=== PATIENT | female | born 1970 | race Caucasian/White ===

== ENCOUNTER → 2016-06-05 | Outpatient (CLI) | payer OTHER ==
[~2016-06-05] MED LIST: /METH500TA PO; AMIT25TA PO; ANEX75TA PO; BACL10TA2 PO; CLAR10CA3 PO; COMBAER6 INH; DICL50TA2 PO; EXCETAB80 PO; FLEX10TA2 PO; IBUP80TA PO; LIDO1OIN2 TOP; NORCOBULK PO; PERC10TA17 PO; TIZA4TAB3 PO; VOLT1GEL2 TD; ZANA2CAP PO
--- NOTE | 2016-06-15 01:49 | ECWPNPC ---
PATIENT NAME: URIEL HARTMAN : 1970 GENDER: FEMALE VISIT DATE: 06/05/2016 DISCHARGE DATE: 06/05/16 1337 VISIT LOCKED DATE TIME: PHYSICIAN: AKOSUA SEPULVEDA RESOURCE: AKOSUA SEPULVEDA REASON FOR APPOINTMENT 1. WC, NECK HISTORY OF PRESENT ILLNESS HISTORY OF PRESENT ILLNESS: PAIN THE PATIENT DESCRIBES THE PAIN... FALL RISK SCREENING: SCREENING :NO FALLS IN THE PAST YEAR TODAY'S VISIT: NOTES: WC FOLLOW UP FOR NECK/ RIGHT SHOULDER PAIN. RATES PAIN TODAY 6-7/10. IS CURRENTLY HAVING PAIN RADIATING INTO RIGHT ARM FROM BASE OF NECK. FEELS A SENSATION OF TEARING OVER THE RIGHT DELTOID. HAS CONTINUED TO WORK BUT DOES NOTE PAIN INCREASING AT END OF WORK DAY. . CURRENT MEDICATIONS TAKING COMBIVENT 120-20 MCG/ACT AEROSOL 2 PUFFS INHALATION FOUR TIMES A DAY TAKING IBUPROFEN 800 MG TABLET 1 TABLET ORALLY TID PRN TAKING METHOCARBAMOL 500 MG TABLET 1/2 -1 TAB ORALLY 1/2 TABLET IN MORNING AND MIDDAY, 1 TABLET AT BEDTIME TAKING AMITRIPTYLINE HCL 25 MG TABLET 1 TABLET AT BEDTIME ORALLY ONCE A DAY TAKING PERCOCET 7.5-325 MG TABLET 1 TABLET NEEDED ORALLY EVERY 8-12 PRN PAIN MDD2 NOT-TAKING WELLBUTRIN TABLET 1 TABLET ORALLY DAILY NEECDED NOT-TAKING VOLTAREN 1 % GEL 1 APPLICATION EXTERNALLY EVERY 6 HOURS NEEDED NOT-TAKING LIDOCAINE 5 % OINTMENT 1 APPLICATION TO AFFECTED AREA NEEDED EXTERNALLY THREE TIMES A DAY NOT-TAKING TIZANIDINE HCL 2 MG TABLET 1 TABLET NEEDED ORALLY EVERY 8 HRS MEDICATION LIST REVIEWED AND RECONCILED WITH THE PATIENT ALLERGIES AMPICILLIN: HIVES: ALLERGY NITROFURANTOIN: DYSPNEA: ALLERGY PENICILLIN (FOR ALLERGIES USE ONLY): HIVES: ALLERGY REVIEW OF SYSTEMS CONSTITUTIONAL: ANY CHANGE IN YOUR MEDICAL CONDITION? NO . CHILLS NO . FEVER NO . INFECTION: DO YOU HAVE NEW INFECTIONS? NO . DO YOU HAVE HISTORY OF MRSA? NO . MUSCULOSKELETAL: ANY NEW PATTERNS OF PAIN OR NUMBNESS? MORE ACHINESS GOING DOWN INTO RIGHT ELBOW FROM NECK AND SHOULDER . GASTROENTEROLOGY: ANY NEW CHANGE IN BOWEL CONTROL? NO . GENITOURINARY: ANY NEW CHANGE IN BLADDER CONTROL? NO . IS THERE A CHANCE YOU COULD BE ? NO . HEMATOLOGY/LYMPH: DO YOU TAKE ANY BLOOD THINNERS? (FOR EXAMPLE- COUMADIN, PLAVIX, AGGRENOX, PLATEL, PRADAXA, OR XARELTO) NO . WHEN WAS YOUR LAST DOSE? DATE: TIME: . NEUROLOGY: HAVE YOU FALLEN IN THE PAST 6 MONTHS? NO . ANY NEW EXTREMITY NUMBNESS OR WEAKNESS? NUMBNESS AND TINGLING IN 4TH AND 5TH FINGERS BOTH HANDS WHEN LAYING DOWN OR WITH USE OF RIGHT HAND . CARDIOLOGY: DO YOU HAVE A PACEMAKER OR DEFIBRILLATOR? NO . RESPIRATORY: HAVE YOU BEEN SICK IN THE PAST WEEK? NO . FEVER NO . FLU LIKE SYMPTOMS? NO . COUGH NO . INTEGUMENTARY: DO YOU HAVE ANY RASHES OR OPEN SORES? NO . ALLERGIC/IMMUNO: ARE YOU ALLERGIC TO SHELLFISH OR IV DYE? NO . ANY NEW ALLERGIES? NO . PSYCHIATRIC: DO YOU HAVE THOUGHTS OF HURTING YOURSELF OR SOMEONE ELSE? NO . ARE YOU ABUSED, NEGLECTED, OR IN AN UNSAFE ENVIRONMENT? NO . ENDOCRINOLOGY: ARE YOU DIABETIC? NO . OTHER: DO YOU NEED ANY PRESCRIPTIONS? YES . IF YES, PLEASE LIST: PERCOCET____ . ANY NEW PROBLEMS WITH YOUR MEDICATIONS? NO . WHEN DID YOU LAST EAT? ____ . WHEN DID YOU LAST DRINK? ____ . WHAT DID YOU LAST DRINK? ____ . NAME OF PERSON DRIVING YOU HOME? ____ . DO YOU HAVE ANY OTHER QUESTIONS OR CONCERNS NO . REVIEWED BY: PROVIDER: AKOSUA KING . VITAL SIGNS WT 147 LBS, HT 62 IN, BMI 26.88 INDEX, BP 127/70 MM HG, HR 75 /MIN, RR 17 /MIN, TEMP 97.5 F, OXYGEN SAT % 97, REVIEWED BY: AM. EXAMINATION GENERAL EXAMINATION: PSYCHALERT , ORIENTED X 3 , APPROPRIATE MOOD AND AFFECT . LUNGS:CLEAR TO AUSCULTATION BILATERALLY. NO COUGH WITH DEEP BREATH. MUSCULOSKELETAL:POINT TENDERNESS OVER CERVICAL SPINOUS PROCESSES AND TRAPEZIUS MUSCLES., TRIGGER POINTS:, ELICITED WITH PALPATION OVER CERVICAL SPINOUS PROCESSES AND ACROSS THE TRAPEZIUS MUSCLES BILATERALLY. RESTRICTION OF ROM IS NOTED. TENDER OVER RIGHT ACROMIALCLAVICULAR JOINT. STERNMAN STRENTGTH EQUAL AND STRONG.. JOINTS:TENDER TO PALPATION OVER RIGHT ACROMIALCLAVICULAR JOINT. CAN ABDUCT RIGHT ARM TO APPROX 60 DEGREES TODAY. . ASSESSMENTS CERVICAL POST-LAMINECTOMY SYNDROME - M96.1 (PRIMARY) RIGHT ANTERIOR SHOULDER PAIN - M25.511 MYALGIA - M79.1 CHRONICALLY ON OPIATE THERAPY - Z79.899 TREATMENT CERVICAL POST-LAMINECTOMY SYNDROME REFILL PERCOCET TABLET, 7.5-325 MG, 1 TABLET NEEDED, ORALLY, EVERY 8-12 PRN PAIN MDD2, 30 DAY(S), 50, REFILLS 0 [facility] MRI SHOULDER W/O [id number] M 06/05/2016 1:27:29 PM > RIGHT NOTES: PHYSICAL THERAPY - CHECK AUTH. PROCEDURES PN WORKMANS' COMP OPINION IN YOUR OPINION, WAS THE INCIDENT THAT THE PATIENT DESCRIBED THE COMPETENT MEDICAL CAUSE OF THIS INJURY/ILLNESS? YES ARE THE PATIENT'S COMPLAINTS CONSISTENT WITH HIS/HER HISTORY OF THE INJURY/ILLNESS? YES IS THE PATIENT'S HISTORY OF THE INJURY/ILLNESS CONSISTENT WITH YOUR OBJECTIVE FINDING? YES WHAT IS THE PERCENTAGE OF TEMPORARY IMPAIRMENT? MODERATE TO MARKED = 66.7% IS THE PATIENT WORKING? YES DOCTOR ON SITE: JUDY DE LA PAZ MD FOLLOW UP 4-6 WEEKS WC (REASON: NEED WC AUTH FOR RIGHT SHOULDER MRI) ELECTRONICALLY SIGNED BY LISSETT MANZANARES ON 06/14/2016 AT 01:28 PM EST DISCLAIMER : THIS IS A VISIT SUMMARY EXTRACTED FROM THE [employer] CHART. IT IS NOT A COPY OF THE [email or web address] PROGRESS NOTE. CALIXTO
== END ==
LOC: M PAIN 09:20
PROVIDERS: ATTEND Nurse Practitioner Family
DX: Z09 Encounter for follow-up examination after completed treatment for conditions other than malignant neoplasm (principal); M96.1 Postlaminectomy syndrome, not elsewhere classified; M25.511 Pain in right shoulder; M79.1 Myalgia; Z88.0 Allergy status to penicillin; Z88.8 Allergy status to other drugs, medicaments and biological substances; Z79.1 Long term (current) use of non-steroidal anti-inflammatories (NSAID); Z79.891 Long term (current) use of opiate analgesic; Z79.899 Other long term (current) drug therapy

== ENCOUNTER → 2016-08-02 | Outpatient (CLI) | payer OTHER ==
--- NOTE | 2016-08-03 00:14 | ECWPNPC ---
PATIENT NAME: URIEL HARTMAN : 1970 GENDER: FEMALE VISIT DATE: 08/02/2016 DISCHARGE DATE: 08/02/16 1232 VISIT LOCKED DATE TIME: PHYSICIAN: AKOSUA SEPULVEDA RESOURCE: AKOSUA SEPULVEDA REASON FOR APPOINTMENT 1. WC, NECK HISTORY OF PRESENT ILLNESS HISTORY OF PRESENT ILLNESS: PAIN THE PATIENT DESCRIBES THE PAIN... FALL RISK SCREENING: SCREENING :NO FALLS IN THE PAST YEAR TODAY'S VISIT: NOTES: INCREASED PAIN AND TIGHTNESS FROM BASE OF HEAD ACROSS TO RIGHT SHOULDER. HAS NOT HEARD ON AUTH FOR PT.REPORTS PAIN MEDS WORK FAIRLY WELL. DENIES ANY ADVERSE EFFECTS. WAS ABLE TO COMPLETE SHOULDER MRI BUT NO REPORT HAS COME YET TO OUR OFFICE.. CURRENT MEDICATIONS TAKING COMBIVENT 120-20 MCG/ACT AEROSOL 2 PUFFS INHALATION FOUR TIMES A DAY TAKING IBUPROFEN 800 MG TABLET 1 TABLET ORALLY TID PRN TAKING PERCOCET 7.5-325 MG TABLET 1 TABLET NEEDED ORALLY EVERY 8-12 PRN PAIN MDD2 TAKING METHOCARBAMOL 500 MG TABLET 1/2 -1 TAB ORALLY 1/2 TABLET IN MORNING AND MIDDAY, 1 TABLET AT BEDTIME TAKING AMITRIPTYLINE HCL 25 MG TABLET 1 TABLET AT BEDTIME ORALLY ONCE A DAY NOT-TAKING WELLBUTRIN TABLET 1 TABLET ORALLY DAILY NEECDED NOT-TAKING VOLTAREN 1 % GEL 1 APPLICATION EXTERNALLY EVERY 6 HOURS NEEDED NOT-TAKING LIDOCAINE 5 % OINTMENT 1 APPLICATION TO AFFECTED AREA NEEDED EXTERNALLY THREE TIMES A DAY NOT-TAKING TIZANIDINE HCL 2 MG TABLET 1 TABLET NEEDED ORALLY EVERY 8 HRS MEDICATION LIST REVIEWED AND RECONCILED WITH THE PATIENT ALLERGIES AMPICILLIN: HIVES: ALLERGY NITROFURANTOIN: DYSPNEA: ALLERGY PENICILLIN (FOR ALLERGIES USE ONLY): HIVES: ALLERGY SOCIAL HISTORY GENERAL: TOBACCO USE ARE YOU A:NONSMOKER LEARNING BARRIERS / SPECIAL NEEDS ORIENTED TO PLAN OF CARE: PATIENT, PAIN MANAGEMENT PATIENT, ORIENTED TO PLAN OF CARE: PATIENT, PAIN MANAGEMENT PATIENT. NEW PATIENT PAIN DIARY TODAY'S VISITNOTES FROM 0-10, WHAT LEVEL IS YOUR PAIN TODAY?0 PAIN CLINIC PFS, CLERGY, PUBLIC HEALTH REFERRALS PFS REFERRAL NEEDED?NO CLERGY REFERRAL NEEDED?NO PUBLIC HEALTH REFERRAL NEEDED?NO WAS THE PROVIDER NOTIFIED OF ANY PERTINENT INFO?NO PFS REFERRAL NEEDED?NO CLERGY REFERRAL NEEDED?NO PUBLIC HEALTH REFERRAL NEEDED?NO WAS THE PROVIDER NOTIFIED OF ANY PERTINENT INFO?NO REVIEW OF SYSTEMS CONSTITUTIONAL: ANY CHANGE IN YOUR MEDICAL CONDITION? NO . CHILLS NO . FEVER NO . INFECTION: DO YOU HAVE NEW INFECTIONS? NO . DO YOU HAVE HISTORY OF MRSA? NO . MUSCULOSKELETAL: ANY NEW PATTERNS OF PAIN OR NUMBNESS? NO . GASTROENTEROLOGY: ANY NEW CHANGE IN BOWEL CONTROL? NO . GENITOURINARY: ANY NEW CHANGE IN BLADDER CONTROL? NO . IS THERE A CHANCE YOU COULD BE ? NO . HEMATOLOGY/LYMPH: DO YOU TAKE ANY BLOOD THINNERS? (FOR EXAMPLE- COUMADIN, PLAVIX, AGGRENOX, PLATEL, PRADAXA, OR XARELTO) NO . WHEN WAS YOUR LAST DOSE? DATE: TIME: . NEUROLOGY: HAVE YOU FALLEN IN THE PAST 6 MONTHS? NO . ANY NEW EXTREMITY NUMBNESS OR WEAKNESS? NO . CARDIOLOGY: DO YOU HAVE A PACEMAKER OR DEFIBRILLATOR? NO . RESPIRATORY: HAVE YOU BEEN SICK IN THE PAST WEEK? NO . FEVER NO . FLU LIKE SYMPTOMS? NO . COUGH NO . INTEGUMENTARY: DO YOU HAVE ANY RASHES OR OPEN SORES? NO . ALLERGIC/IMMUNO: ARE YOU ALLERGIC TO SHELLFISH OR IV DYE? NO . ANY NEW ALLERGIES? NO . PSYCHIATRIC: DO YOU HAVE THOUGHTS OF HURTING YOURSELF OR SOMEONE ELSE? NO . ARE YOU ABUSED, NEGLECTED, OR IN AN UNSAFE ENVIRONMENT? NO . ENDOCRINOLOGY: ARE YOU DIABETIC? NO . OTHER: DO YOU NEED ANY PRESCRIPTIONS? YES . IF YES, PLEASE LIST: ____PERCOCET . ANY NEW PROBLEMS WITH YOUR MEDICATIONS? NO . WHEN DID YOU LAST EAT? ____ . WHEN DID YOU LAST DRINK? ____ . WHAT DID YOU LAST DRINK? ____ . NAME OF PERSON DRIVING YOU HOME? ____ . DO YOU HAVE ANY OTHER QUESTIONS OR CONCERNS NO . REVIEWED BY: PROVIDER: AKOSUA KING . VITAL SIGNS WT 155.2 LBS, HT 62 IN, BMI 28.38 INDEX, BP 113/65 MM HG, HR 64 /MIN, RR 16 /MIN, TEMP 97.2 F, OXYGEN SAT % 98%, NA INITIALS SC 11:44. EXAMINATION GENERAL EXAMINATION: PSYCHALERT , ORIENTED X 3 , APPROPRIATE MOOD AND AFFECT . LUNGS:CLEAR TO AUSCULTATION BILATERALLY. NO COUGH WITH DEEP BREATH. MUSCULOSKELETAL:POINT TENDERNESS OVER CERVICAL SPINOUS PROCESSES AND TRAPEZIUS MUSCLES., TRIGGER POINTS AND ROPY FIBROUS BANDS ARE ELICITED WITH PALPATION OVER CERVICAL SPINOUS PROCESSES AND ACROSS THE TRAPEZIUS MUSCLES BILATERALLY RIGHT > LEFT. RESTRICTION OF ROM IS NOTED. TENDER OVER RIGHT ACROMIALCLAVICULAR JOINT. GENERATING STATION MECHANIC STRENTGTH EQUAL AND STRONG.. JOINTS:TENDER TO PALPATION OVER RIGHT ACROMIALCLAVICULAR JOINT. CAN ABDUCT RIGHT ARM TO APPROX 80 DEGREES TODAY. . ASSESSMENTS CERVICAL POST-LAMINECTOMY SYNDROME - M96.1 (PRIMARY) RIGHT ANTERIOR SHOULDER PAIN - M25.511 MYALGIA - M79.1 CHRONICALLY ON OPIATE THERAPY - Z79.899 TREATMENT CERVICAL POST-LAMINECTOMY SYNDROME REFILL PERCOCET TABLET, 7.5-325 MG, 1 TABLET NEEDED, ORALLY, EVERY 8-12 PRN PAIN MDD2, 30 DAY(S), 50, REFILLS 0 NOTES: UTOX TODAY. REQUESTING AUTH FOR PHYSICAL THERAPY. WILL MOVE TO DO TRIGGER POINTS TO NEK AND SHOULDER AREA ONCE THIS IS UNDERWAY. NO CHANGE TO CURRENT MEDS. MUST BRING MEDS TO NEXT VISIT. CLINICAL NOTES: ISTOP REGISTRY REVIEWED AND DEMNOSTRATES COMPLLIANCE. RECENT URINE TOXICOLOGY REVIEWED. NO UNAUTHORIZED MEDICATIONS. NO ILLICIT SUBSTANCES AND PRESCRIBED MEDICATIONS WERE PRESENT. PROCEDURES PN WORKMANS' COMP OPINION IN YOUR OPINION, WAS THE INCIDENT THAT THE PATIENT DESCRIBED THE COMPETENT MEDICAL CAUSE OF THIS INJURY/ILLNESS? YES ARE THE PATIENT'S COMPLAINTS CONSISTENT WITH HIS/HER HISTORY OF THE INJURY/ILLNESS? YES IS THE PATIENT'S HISTORY OF THE INJURY/ILLNESS CONSISTENT WITH YOUR OBJECTIVE FINDING? YES WHAT IS THE PERCENTAGE OF TEMPORARY IMPAIRMENT? MODERATE TO MARKED = 66.7% IS THE PATIENT WORKING? YES DOCTOR ON SITE: JUDY DE LA PAZ MD PROCEDURE CODES FA211 ESTABILISHED PATIENT [facility] FACILITY CHARGE DISPOSITION & COMMUNICATION FOLLOW UP 6 WEEKS (REASON: JIE NEED REPORT OF SHOULDER MRI FROM [facility]) ELECTRONICALLY SIGNED BY LISSETT MANZANARES ON 08/02/2016 AT 03:53 PM EST DISCLAIMER : THIS IS A VISIT SUMMARY EXTRACTED FROM THE [employer] CHART. IT IS NOT A COPY OF THE [employer] PROGRESS NOTE. CALIXTO
== END ==
LOC: M PAIN 11:00
PROVIDERS: ATTEND Nurse Practitioner Family
DX: Z09 Encounter for follow-up examination after completed treatment for conditions other than malignant neoplasm (principal); G89.29 Other chronic pain; M96.1 Postlaminectomy syndrome, not elsewhere classified; M25.511 Pain in right shoulder; M79.1 Myalgia; Z88.1 Allergy status to other antibiotic agents; Z88.0 Allergy status to penicillin; Z88.8 Allergy status to other drugs, medicaments and biological substances; Z79.1 Long term (current) use of non-steroidal anti-inflammatories (NSAID); Z79.891 Long term (current) use of opiate analgesic; Z79.899 Other long term (current) drug therapy

== ENCOUNTER → 2016-09-10 | Outpatient (CLI) | payer OTHER ==
--- NOTE | 2016-09-20 00:08 | ECWPNPC ---
PATIENT NAME: URIEL HARTMAN : 1970 GENDER: FEMALE VISIT DATE: 09/10/2016 DISCHARGE DATE: 09/10/16 1348 VISIT LOCKED DATE TIME: PHYSICIAN: AKOSUA SEPULVEDA RESOURCE: AKOSUA SEPULVEDA HISTORY OF PRESENT ILLNESS HISTORY OF PRESENT ILLNESS: PAIN THE PATIENT DESCRIBES THE PAIN... FALL RISK SCREENING: SCREENING :NO FALLS IN THE PAST YEAR TODAY'S VISIT: NOTES: WC FOLLOWUP FOR NECK/RIGHT SHOULDER PAIN. RATES PAIN TODAY 5-6/10. HAS BEEN HAVING WELLING OF JOINTS AND IS SEEING HER PCP ABOUT THIS. SHOULDER IS UNCHANGED. HAS BEEN HAVING MORE WEAKNESS AND PAIN IN RIGHT WRIST. . CURRENT MEDICATIONS TAKING COMBIVENT 120-20 MCG/ACT AEROSOL 2 PUFFS INHALATION FOUR TIMES A DAY TAKING IBUPROFEN 800 MG TABLET 1 TABLET ORALLY TID PRN TAKING METHOCARBAMOL 500 MG TABLET 1/2 -1 TAB ORALLY 1/2 TABLET IN MORNING AND MIDDAY, 1 TABLET AT BEDTIME TAKING AMITRIPTYLINE HCL 25 MG TABLET 1 TABLET AT BEDTIME ORALLY ONCE A DAY TAKING PERCOCET 7.5-325 MG TABLET 1 TABLET NEEDED ORALLY EVERY 8-12 PRN PAIN MDD2 NOT-TAKING WELLBUTRIN TABLET 1 TABLET ORALLY DAILY NEECDED NOT-TAKING VOLTAREN 1 % GEL 1 APPLICATION EXTERNALLY EVERY 6 HOURS NEEDED NOT-TAKING LIDOCAINE 5 % OINTMENT 1 APPLICATION TO AFFECTED AREA NEEDED EXTERNALLY THREE TIMES A DAY NOT-TAKING TIZANIDINE HCL 2 MG TABLET 1 TABLET NEEDED ORALLY EVERY 8 HRS MEDICATION LIST REVIEWED AND RECONCILED WITH THE PATIENT ALLERGIES AMPICILLIN: HIVES: ALLERGY NITROFURANTOIN: DYSPNEA: ALLERGY PENICILLIN (FOR ALLERGIES USE ONLY): HIVES: ALLERGY SOCIAL HISTORY GENERAL: PAIN CLINIC PFS, CLERGY, PUBLIC HEALTH REFERRALS CLERGY REFERRAL NEEDED?NO WAS THE PROVIDER NOTIFIED OF ANY PERTINENT INFO?NO PFS REFERRAL NEEDED?NO PUBLIC HEALTH REFERRAL NEEDED?NO PATIENT: ____. REVIEW OF SYSTEMS CONSTITUTIONAL: ANY CHANGE IN YOUR MEDICAL CONDITION? NO . CHILLS NO . FEVER NO . INFECTION: DO YOU HAVE NEW INFECTIONS? NO . DO YOU HAVE HISTORY OF MRSA? NO . MUSCULOSKELETAL: ANY NEW PATTERNS OF PAIN OR NUMBNESS? NO . GASTROENTEROLOGY: ANY NEW CHANGE IN BOWEL CONTROL? NO . GENITOURINARY: ANY NEW CHANGE IN BLADDER CONTROL? NO . IS THERE A CHANCE YOU COULD BE ? NO . HEMATOLOGY/LYMPH: DO YOU TAKE ANY BLOOD THINNERS? (FOR EXAMPLE- COUMADIN, PLAVIX, AGGRENOX, PLATEL, PRADAXA, OR XARELTO) NO . WHEN WAS YOUR LAST DOSE? DATE: TIME: . NEUROLOGY: HAVE YOU FALLEN IN THE PAST 6 MONTHS? NO . ANY NEW EXTREMITY NUMBNESS OR WEAKNESS? NO . CARDIOLOGY: DO YOU HAVE A PACEMAKER OR DEFIBRILLATOR? NO . RESPIRATORY: HAVE YOU BEEN SICK IN THE PAST WEEK? NO . FEVER NO . FLU LIKE SYMPTOMS? NO . COUGH NO . INTEGUMENTARY: DO YOU HAVE ANY RASHES OR OPEN SORES? NO . ALLERGIC/IMMUNO: ARE YOU ALLERGIC TO SHELLFISH OR IV DYE? NO . ANY NEW ALLERGIES? NO . PSYCHIATRIC: DO YOU HAVE THOUGHTS OF HURTING YOURSELF OR SOMEONE ELSE? NO . ARE YOU ABUSED, NEGLECTED, OR IN AN UNSAFE ENVIRONMENT? NO . ENDOCRINOLOGY: ARE YOU DIABETIC? NO . OTHER: DO YOU NEED ANY PRESCRIPTIONS? NO . IF YES, PLEASE LIST: ____ . ANY NEW PROBLEMS WITH YOUR MEDICATIONS? NO . WHEN DID YOU LAST EAT? ____ . WHEN DID YOU LAST DRINK? ____ . WHAT DID YOU LAST DRINK? ____ . NAME OF PERSON DRIVING YOU HOME? ____ . DO YOU HAVE ANY OTHER QUESTIONS OR CONCERNS NO . REVIEWED BY: PROVIDER: AKOSUA KING . VITAL SIGNS WT 158 LBS, HT 62 IN, BMI 28.90 INDEX, BP 126/75 MM HG, HR 60 /MIN, RR 16 /MIN, TEMP 98.2 F, OXYGEN SAT % 98%, NA INITIALS AW 1324, REVIEWED BY: CS. EXAMINATION GENERAL EXAMINATION: PSYCHALERT , ORIENTED X 3 , APPROPRIATE MOOD AND AFFECT . LUNGS:CLEAR TO AUSCULTATION BILATERALLY. NO COUGH WITH DEEP BREATH. MUSCULOSKELETAL:POINT TENDERNESS OVER CERVICAL SPINOUS PROCESSES AND TRAPEZIUS MUSCLES., TRIGGER POINTS AND ROPY FIBROUS BANDS ARE ELICITED WITH PALPATION OVER CERVICAL SPINOUS PROCESSES AND ACROSS THE TRAPEZIUS MUSCLES BILATERALLY RIGHT > LEFT. RESTRICTION OF ROM IS NOTED. TENDER OVER RIGHT ACROMIALCLAVICULAR JOINT. CATERER'S AIDE STRENTGTH EQUAL AND STRONG.. JOINTS:TENDER TO PALPATION OVER RIGHT ACROMIALCLAVICULAR JOINT. CAN ABDUCT RIGHT ARM TO APPROX 80 DEGREES TODAY. . ASSESSMENTS CERVICAL POST-LAMINECTOMY SYNDROME - M96.1 (PRIMARY) RIGHT ANTERIOR SHOULDER PAIN - M25.511 MYALGIA - M79.1 CHRONICALLY ON OPIATE THERAPY - Z79.899 TREATMENT CERVICAL POST-LAMINECTOMY SYNDROME NOTES: CALL DR JERONIMO ABOUT SHOULDER MRI AND ASK FOR FOLLOWUP. ICE TO SHOULDER 2-3 TIMES PER DAY. CONTINUE CURRENT MEDS. MUST BRING MEDS TO EVERY VISIT. CLINICAL NOTES: ISTOP REGISTRY REVIEWED AND DEMNOSTRATES COMPLLIANCE. DOES NOT BRING IN MEDICATIONS TODAY. RECENT URINE TOXICOLOGY REVIEWED. NO UNAUTHORIZED MEDICATIONS. NO ILLICIT SUBSTANCES AND PRESCRIBED MEDICATIONS WERE PRESENT. PROCEDURES PN WORKMANS' COMP OPINION IN YOUR OPINION, WAS THE INCIDENT THAT THE PATIENT DESCRIBED THE COMPETENT MEDICAL CAUSE OF THIS INJURY/ILLNESS? YES ARE THE PATIENT'S COMPLAINTS CONSISTENT WITH HIS/HER HISTORY OF THE INJURY/ILLNESS? YES IS THE PATIENT'S HISTORY OF THE INJURY/ILLNESS CONSISTENT WITH YOUR OBJECTIVE FINDING? YES WHAT IS THE PERCENTAGE OF TEMPORARY IMPAIRMENT? MODERATE TO MARKED = 66.7% IS THE PATIENT WORKING? NO DOCTOR ON SITE: JUDY DE LA PAZ MD PROCEDURE CODES FA211 ESTABILISHED PATIENT [facility] CHARGE DISPOSITION & COMMUNICATION FOLLOW UP 6 WEEKS (REASON: WC SHOULDER/NECK) ELECTRONICALLY SIGNED BY LISSETT MANZANARES ON 09/19/2016 AT 09:17 AM EDT DISCLAIMER : THIS IS A VISIT SUMMARY EXTRACTED FROM THE [employer] CHART. IT IS NOT A COPY OF THE [employer] PROGRESS NOTE. CALIXTO
== END ==
LOC: M PAIN 13:30
PROVIDERS: ATTEND Nurse Practitioner Family
DX: M96.1 Postlaminectomy syndrome, not elsewhere classified (principal); M25.511 Pain in right shoulder; M79.1 Myalgia; Z88.0 Allergy status to penicillin; Z88.8 Allergy status to other drugs, medicaments and biological substances; Z88.1 Allergy status to other antibiotic agents; Z79.1 Long term (current) use of non-steroidal anti-inflammatories (NSAID); Z79.891 Long term (current) use of opiate analgesic; Z79.899 Other long term (current) drug therapy

== ENCOUNTER → 2016-10-11 | Outpatient (CLI) | payer OTHER ==
--- NOTE | 2016-10-28 23:45 | ECWPNPC ---
PATIENT NAME: URIEL HARTMAN : 1970 GENDER: FEMALE VISIT DATE: 10/11/2016 DISCHARGE DATE: 10/11/16 1135 VISIT LOCKED DATE TIME: PHYSICIAN: AKOSUA SEPULVEDA RESOURCE: AKOSUA SEPULVEDA REASON FOR APPOINTMENT 1. NECK HISTORY OF PRESENT ILLNESS HISTORY OF PRESENT ILLNESS: PAIN THE PATIENT DESCRIBES THE PAIN... FALL RISK SCREENING: SCREENING :NO FALLS IN THE PAST YEAR TODAY'S VISIT: NOTES: FOLLOWUP FOR NECK/SHOULDER PAIN RATES PAIN LEVEL TODAY 5-6/10. SAW CERVICAL SURGEON , DR DARREL MOORE, WHO EVALUATED NECK HARDWARE AND SAID ALL WAS WELL. STILL HAS PAIN RADIATING TO RIGHT FOREARM. HAS SHARP BURNING PAIN OVER RIGHT DELTOID.. CURRENT MEDICATIONS TAKING COMBIVENT 120-20 MCG/ACT AEROSOL 2 PUFFS INHALATION FOUR TIMES A DAY TAKING IBUPROFEN 800 MG TABLET 1 TABLET ORALLY TID PRN TAKING METHOCARBAMOL 500 MG TABLET 1/2 -1 TAB ORALLY 1/2 TABLET IN MORNING AND MIDDAY, 1 TABLET AT BEDTIME TAKING AMITRIPTYLINE HCL 25 MG TABLET 1 TABLET AT BEDTIME ORALLY ONCE A DAY TAKING PERCOCET 7.5-325 MG TABLET 1 TABLET NEEDED ORALLY EVERY 8-12 PRN PAIN MDD2 TAKING ONE DAILY FOR WOMEN - TABLET ORALLY DAILY NOT-TAKING WELLBUTRIN TABLET 1 TABLET ORALLY DAILY NEECDED NOT-TAKING VOLTAREN 1 % GEL 1 APPLICATION EXTERNALLY EVERY 6 HOURS NEEDED NOT-TAKING LIDOCAINE 5 % OINTMENT 1 APPLICATION TO AFFECTED AREA NEEDED EXTERNALLY THREE TIMES A DAY NOT-TAKING TIZANIDINE HCL 2 MG TABLET 1 TABLET NEEDED ORALLY EVERY 8 HRS MEDICATION LIST REVIEWED AND RECONCILED WITH THE PATIENT PAST MEDICAL HISTORY HAD CHEST TUBES ON RIGHT SIDE FOR SPONTANEOUS PNEUMOTHORAX 2 TIMES 1997 AND 2003 , HAS HAD LUNG LESIONS ALLERGIES AMPICILLIN: HIVES: ALLERGY NITROFURANTOIN: DYSPNEA: ALLERGY PENICILLIN (FOR ALLERGIES USE ONLY): HIVES: ALLERGY SURGICAL HISTORY APPENDECTOMY CERVICAL FUSION 2012 OOPHORECTOMY, LEFT 1997 OOPHORETOMY, RIGHT 2003 SURGERY FOR PNEUMOTHORAX 09/03 HOSPITALIZATION/MAJOR DIAGNOSTIC PROCEDURE PNEUMOTHORAZ PNEUMOTHORAX 07/06 REVIEW OF SYSTEMS CONSTITUTIONAL: ANY CHANGE IN YOUR MEDICAL CONDITION? YES, [facility]24[facility] NE[facility]/ NEEDS TO SEE CUPOLA LINER . CHILLS NO . FEVER NO . INFECTION: DO YOU HAVE NEW INFECTIONS? NO . DO YOU HAVE HISTORY OF MRSA? NO . MUSCULOSKELETAL: ANY NEW PATTERNS OF PAIN OR NUMBNESS? NO . GASTROENTEROLOGY: ANY NEW CHANGE IN BOWEL CONTROL? NO . GENITOURINARY: ANY NEW CHANGE IN BLADDER CONTROL? NO . IS THERE A CHANCE YOU COULD BE ? NO . HEMATOLOGY/LYMPH: DO YOU TAKE ANY BLOOD THINNERS? (FOR EXAMPLE- COUMADIN, PLAVIX, AGGRENOX, PLATEL, PRADAXA, OR XARELTO) NO . WHEN WAS YOUR LAST DOSE? DATE: TIME: . NEUROLOGY: HAVE YOU FALLEN IN THE PAST 6 MONTHS? NO . ANY NEW EXTREMITY NUMBNESS OR WEAKNESS? NO . CARDIOLOGY: DO YOU HAVE A PACEMAKER OR DEFIBRILLATOR? NO . RESPIRATORY: HAVE YOU BEEN SICK IN THE PAST WEEK? NO . FEVER NO . FLU LIKE SYMPTOMS? NO . COUGH NO . INTEGUMENTARY: DO YOU HAVE ANY RASHES OR OPEN SORES? NO . ALLERGIC/IMMUNO: ARE YOU ALLERGIC TO SHELLFISH OR IV DYE? NO . ANY NEW ALLERGIES? NO . PSYCHIATRIC: DO YOU HAVE THOUGHTS OF HURTING YOURSELF OR SOMEONE ELSE? NO . ARE YOU ABUSED, NEGLECTED, OR IN AN UNSAFE ENVIRONMENT? NO . ENDOCRINOLOGY: ARE YOU DIABETIC? NO . OTHER: DO YOU NEED ANY PRESCRIPTIONS? NO . IF YES, PLEASE LIST: ____ . ANY NEW PROBLEMS WITH YOUR MEDICATIONS? NO . WHEN DID YOU LAST EAT? ____ . WHEN DID YOU LAST DRINK? ____ . WHAT DID YOU LAST DRINK? ____ . NAME OF PERSON DRIVING YOU HOME? ____ . DO YOU HAVE ANY OTHER QUESTIONS OR CONCERNS NO . REVIEWED BY: PROVIDER: AKOSUA KING . VITAL SIGNS WT 155 LBS, HT 62 IN, BMI 28.35 INDEX, BP 132/72 MM HG, HR 70 /MIN, RR 16 /MIN, TEMP 98.7 F, OXYGEN SAT % 99%, NA INITIALS SC 11:03, REVIEWED BY: NL. EXAMINATION GENERAL EXAMINATION: PSYCHALERT , ORIENTED X 3 , APPROPRIATE MOOD AND AFFECT . LUNGS:CLEAR TO AUSCULTATION BILATERALLY. NO COUGH WITH DEEP BREATH. MUSCULOSKELETAL:POINT TENDERNESS OVER CERVICAL SPINOUS PROCESSES AND TRAPEZIUS MUSCLES., TRIGGER POINTS AND ROPY FIBROUS BANDS ARE ELICITED WITH PALPATION OVER CERVICAL SPINOUS PROCESSES AND ACROSS THE TRAPEZIUS MUSCLES BILATERALLY RIGHT > LEFT. RESTRICTION OF ROM IS NOTED. TENDER OVER RIGHT ACROMIALCLAVICULAR JOINT. ASSOCIATE MEDIA DIRECTOR STRENTGTH EQUAL AND STRONG.. JOINTS:TENDER TO PALPATION OVER RIGHT ACROMIALCLAVICULAR JOINT. CAN ABDUCT RIGHT ARM TO APPROX 80 DEGREES TODAY. . ASSESSMENTS CERVICAL POST-LAMINECTOMY SYNDROME - M96.1 (PRIMARY) RIGHT ANTERIOR SHOULDER PAIN - M25.511 MYALGIA - M79.1 CHRONICALLY ON OPIATE THERAPY - Z79.899 TREATMENT CERVICAL POST-LAMINECTOMY SYNDROME NOTES: CONTINUE CURRENT MEDS. CONTINUE EXERCISES AND STRETCHES, ISTOP REGISTRY REVIEWED AND DEMNOSTRATES COMPLLIANCE. BRINGS IN MEDICATIONS WHICH IS APPROPRIATE FOR WHAT WAS DISPENSED. RECENT URINE TOXICOLOGY REVIEWED. NO UNAUTHORIZED MEDICATIONS. NO ILLICIT SUBSTANCES AND PRESCRIBED MEDICATIONS WERE PRESENT. PROCEDURES PN WORKMANS' COMP OPINION IN YOUR OPINION, WAS THE INCIDENT THAT THE PATIENT DESCRIBED THE COMPETENT MEDICAL CAUSE OF THIS INJURY/ILLNESS? YES ARE THE PATIENT'S COMPLAINTS CONSISTENT WITH HIS/HER HISTORY OF THE INJURY/ILLNESS? YES IS THE PATIENT'S HISTORY OF THE INJURY/ILLNESS CONSISTENT WITH YOUR OBJECTIVE FINDING? YES WHAT IS THE PERCENTAGE OF TEMPORARY IMPAIRMENT? MODERATE TO MARKED = 66.7% IS THE PATIENT WORKING? YES UNCERTAIN DOCTOR ON SITE: JUDY DE LA PAZ MD PROCEDURE CODES FA211 ESTABILISHED PATIENT [facility] FACILITY CHARGE DISPOSITION & COMMUNICATION FOLLOW UP 6 WEEKS ELECTRONICALLY SIGNED BY LISSETT MANZANARES ON 10/28/2016 AT 04:18 PM EDT DISCLAIMER : THIS IS A VISIT SUMMARY EXTRACTED FROM THE [employer] CHART. IT IS NOT A COPY OF THE [employer] PROGRESS NOTE. [place]ance
== END ==
LOC: M PAIN 10:40
PROVIDERS: ATTEND Nurse Practitioner Family
DX: M96.1 Postlaminectomy syndrome, not elsewhere classified (principal); M25.511 Pain in right shoulder; M79.1 Myalgia; Z88.1 Allergy status to other antibiotic agents; Z88.0 Allergy status to penicillin; Z88.8 Allergy status to other drugs, medicaments and biological substances; Z79.1 Long term (current) use of non-steroidal anti-inflammatories (NSAID); Z79.899 Other long term (current) drug therapy

== ENCOUNTER → 2016-11-28 | Outpatient (CLI) | payer OTHER ==
[~2016-11-28] MED LIST changes: -PERC10TA17 PO; +PERC10TA26 PO
--- NOTE | 2016-12-18 00:55 | ECWPNPC ---
PATIENT NAME: URIEL HARTMAN : 1970 GENDER: FEMALE VISIT DATE: 11/28/2016 DISCHARGE DATE: 11/28/16 1242 VISIT LOCKED DATE TIME: PHYSICIAN: AKOSUA SEPULVEDA RESOURCE: AKOSUA SEPULVEDA REASON FOR APPOINTMENT 1. W/C NECK HISTORY OF PRESENT ILLNESS TODAY'S VISIT: NOTES: WC FOLLOWUP FOR NECK AND SHOULDER PAIN. STATES FEELS LIKE BONE ON BONE IN RIGHT SHOULDER. HAS ACHEY THROBBING FEEL TO BICEPS AND AXILLA.RATES PAIN TODAY AS6-7/10. DESCRIBES PAIN ACHING, GRINDING AND TENDER. NOTES PAIN IS WORSE AFTER ACTIVITY, ESPECIALLY LIFING WITH RIGHT ARM.. CURRENT MEDICATIONS TAKING COMBIVENT 120-20 MCG/ACT AEROSOL 2 PUFFS INHALATION FOUR TIMES A DAY TAKING IBUPROFEN 800 MG TABLET 1 TABLET ORALLY TID PRN TAKING METHOCARBAMOL 500 MG TABLET 1/2 -1 TAB ORALLY 1/2 TABLET IN MORNING AND MIDDAY, 1 TABLET AT BEDTIME TAKING AMITRIPTYLINE HCL 25 MG TABLET 1 TABLET AT BEDTIME ORALLY ONCE A DAY TAKING ONE DAILY FOR WOMEN - TABLET ORALLY DAILY TAKING PERCOCET 7.5-325 MG TABLET 1 TABLET NEEDED ORALLY EVERY 8-12 PRN PAIN MDD2 TAKING ALBUTEROL SULFATE (2.5 MG/3ML) 0.083% NEBULIZATION SOLUTION 3 ML INHALATION THREE TIMES A DAY NOT-TAKING WELLBUTRIN TABLET 1 TABLET ORALLY DAILY NEECDED NOT-TAKING VOLTAREN 1 % GEL 1 APPLICATION EXTERNALLY EVERY 6 HOURS NEEDED NOT-TAKING LIDOCAINE 5 % OINTMENT 1 APPLICATION TO AFFECTED AREA NEEDED EXTERNALLY THREE TIMES A DAY NOT-TAKING TIZANIDINE HCL 2 MG TABLET 1 TABLET NEEDED ORALLY EVERY 8 HRS MEDICATION LIST REVIEWED AND RECONCILED WITH THE PATIENT PAST MEDICAL HISTORY HAD CHEST TUBES ON RIGHT SIDE FOR SPONTANEOUS PNEUMOTHORAX 2 TIMES 1997 AND 2003 , HAS HAD LUNG LESIONS ALLERGIES AMPICILLIN: HIVES: ALLERGY NITROFURANTOIN: DYSPNEA: ALLERGY PENICILLIN (FOR ALLERGIES USE ONLY): HIVES: ALLERGY REVIEW OF SYSTEMS FOLLOW-UP ROS: CARDIOLOGY: NEGATIVE FOR, CHEST PAIN, LIGHTHEADEDNESS, NO LEG SWELLING . GASTROENTEROLOGY: NO NAUSEA, VOMITING, DIARRHEA, CONSTIPATION, MELENA, HEMATOCHEZIA . NEUROLOGY: NUMBNESS AND TINGLING INTO RIGHT HAND/ARM ESPECIALLY WITH ACTIVITY . PSYCHOLOGY: POSITIVE FOR, ANXIETY . PULMONOLOGY: INTERMITTANT HARSE COUGH. FOLLOWING UP WITH PULMONOLOGY IN [place] . VITAL SIGNS WT 158.2 LBS, HT 62 IN, BMI 28.93 INDEX, BP 144/80 MM HG, HR 60 /MIN, RR 16 /MIN, TEMP 97.5 F, OXYGEN SAT % 99%, NA INITIALS SC 12:09. EXAMINATION GENERAL EXAMINATION: PSYCHALERT , ORIENTED X 3 , APPROPRIATE MOOD AND AFFECT . LUNGS:CLEAR TO AUSCULTATION BILATERALLY. NO COUGH WITH DEEP BREATH. MUSCULOSKELETAL:POINT TENDERNESS OVER CERVICAL SPINOUS PROCESSES AND TRAPEZIUS MUSCLES., TRIGGER POINTS AND ROPY FIBROUS BANDS ARE ELICITED WITH PALPATION OVER CERVICAL SPINOUS PROCESSES AND ACROSS THE TRAPEZIUS MUSCLES BILATERALLY RIGHT > LEFT. RESTRICTION OF ROM IS NOTED. TENDER OVER RIGHT ACROMIALCLAVICULAR JOINT. REPAIR COIL WINDER STRENTGTH EQUAL AND STRONG.. JOINTS:TENDER TO PALPATION OVER RIGHT ACROMIALCLAVICULAR JOINT. CAN ABDUCT RIGHT ARM TO APPROX 80 DEGREES TODAY. . ASSESSMENTS CERVICAL POST-LAMINECTOMY SYNDROME - M96.1 (PRIMARY) RIGHT ANTERIOR SHOULDER PAIN - M25.511 MYALGIA - M79.1 CHRONICALLY ON OPIATE THERAPY - Z79.899 TREATMENT CERVICAL POST-LAMINECTOMY SYNDROME REFILL PERCOCET TABLET, 7.5-325 MG, 1 TABLET NEEDED, ORALLY, EVERY 8-12 PRN PAIN MDD2, 30 DAY(S), 50, REFILLS 0 NOTES: CONTINUE EXERCISES AND STRETCHES. HEAT/ ICE TO MUSCLES NEEDED. PROCEDURES PN WORKMANS' COMP OPINION IN YOUR OPINION, WAS THE INCIDENT THAT THE PATIENT DESCRIBED THE COMPETENT MEDICAL CAUSE OF THIS INJURY/ILLNESS? YES ARE THE PATIENT'S COMPLAINTS CONSISTENT WITH HIS/HER HISTORY OF THE INJURY/ILLNESS? YES IS THE PATIENT'S HISTORY OF THE INJURY/ILLNESS CONSISTENT WITH YOUR OBJECTIVE FINDING? YES WHAT IS THE PERCENTAGE OF TEMPORARY IMPAIRMENT? MODERATE TO MARKED = 66.7% IS THE PATIENT WORKING? YES DOCTOR ON SITE: JUDY DE LA PAZ MD PROCEDURE CODES FA211 ESTABILISHED PATIENT [facility] FACILITY CHARGE DISPOSITION & COMMUNICATION FOLLOW UP WC 6 WEEKS (REASON: NECK/R SHOULDER) ELECTRONICALLY SIGNED BY LISSETT MANZANARES ON 12/17/2016 AT 08:56 AM EDT DISCLAIMER : THIS IS A VISIT SUMMARY EXTRACTED FROM THE [employer] CHART. IT IS NOT A COPY OF THE [employer] PROGRESS NOTE. CALIXTO
== END ==
LOC: M PAIN 11:40
PROVIDERS: ATTEND Nurse Practitioner Family
DX: M96.1 Postlaminectomy syndrome, not elsewhere classified (principal); M25.511 Pain in right shoulder; M79.1 Myalgia; Z88.1 Allergy status to other antibiotic agents; Z88.0 Allergy status to penicillin; Z88.8 Allergy status to other drugs, medicaments and biological substances; Z79.1 Long term (current) use of non-steroidal anti-inflammatories (NSAID); Z79.899 Other long term (current) drug therapy

== ENCOUNTER → 2016-12-20 | Outpatient (CLI) | payer OTHER ==
--- NOTE | 2016-12-20 23:16 | ECWPNPC ---
PATIENT NAME: URIEL HARTMAN : 1970 GENDER: FEMALE VISIT DATE: 12/20/2016 DISCHARGE DATE: 12/20/16 1106 VISIT LOCKED DATE TIME: PHYSICIAN: AKOSUA SEPULVEDA RESOURCE: AKOSUA SEPULVEDA REASON FOR APPOINTMENT 1. MEDS HISTORY OF PRESENT ILLNESS HISTORY OF PRESENT ILLNESS: PAIN THE PATIENT DESCRIBES THE PAIN... FALL RISK SCREENING: SCREENING :NO FALLS IN THE PAST YEAR TODAY'S VISIT: NOTES: HAS BEEN HAVING INCREASED PAIN IN RIGHT SHOULDER JOINT STATES HAS BEEN OUT OF PAIN MEDS AND DID TAKE HER SON MARILYN. HAS BEEN SOAKING AND USING ICYHOT/ASPERCREME. USING TENS UNIT.RATES PAIN TODAY 7/10. STATES IS WORKING 4 DAYS IN A ROW AND THIS IS AGGRAVATING THE PAIN. . CURRENT MEDICATIONS TAKING COMBIVENT 120-20 MCG/ACT AEROSOL 2 PUFFS INHALATION FOUR TIMES A DAY TAKING IBUPROFEN 800 MG TABLET 1 TABLET ORALLY TID PRN TAKING METHOCARBAMOL 500 MG TABLET 1/2 -1 TAB ORALLY 1/2 TABLET IN MORNING AND MIDDAY, 1 TABLET AT BEDTIME TAKING AMITRIPTYLINE HCL 25 MG TABLET 1 TABLET AT BEDTIME ORALLY ONCE A DAY TAKING ONE DAILY FOR WOMEN - TABLET ORALLY DAILY TAKING ALBUTEROL SULFATE (2.5 MG/3ML) 0.083% NEBULIZATION SOLUTION 3 ML INHALATION THREE TIMES A DAY TAKING PERCOCET 7.5-325 MG TABLET 1 TABLET NEEDED ORALLY EVERY 8-12 PRN PAIN MDD2 NOT-TAKING WELLBUTRIN TABLET 1 TABLET ORALLY DAILY NEECDED NOT-TAKING VOLTAREN 1 % GEL 1 APPLICATION EXTERNALLY EVERY 6 HOURS NEEDED NOT-TAKING LIDOCAINE 5 % OINTMENT 1 APPLICATION TO AFFECTED AREA NEEDED EXTERNALLY THREE TIMES A DAY NOT-TAKING TIZANIDINE HCL 2 MG TABLET 1 TABLET NEEDED ORALLY EVERY 8 HRS PAST MEDICAL HISTORY HAD CHEST TUBES ON RIGHT SIDE FOR SPONTANEOUS PNEUMOTHORAX 2 TIMES 1997 AND 2003 , HAS HAD LUNG LESIONS ALLERGIES AMPICILLIN: HIVES: ALLERGY NITROFURANTOIN: DYSPNEA: ALLERGY PENICILLIN (FOR ALLERGIES USE ONLY): HIVES: ALLERGY REVIEW OF SYSTEMS REVIEWED BY: PROVIDER: AKOSUA KING . CONSTITUTIONAL: ANY CHANGE IN YOUR MEDICAL CONDITION? NO . CHILLS NO . FEVER NO . INFECTION: DO YOU HAVE NEW INFECTIONS? NO . DO YOU HAVE HISTORY OF MRSA? NO . MUSCULOSKELETAL: ANY NEW PATTERNS OF PAIN OR NUMBNESS? NO . GASTROENTEROLOGY: ANY NEW CHANGE IN BOWEL CONTROL? NO . GENITOURINARY: ANY NEW CHANGE IN BLADDER CONTROL? NO . IS THERE A CHANCE YOU COULD BE ? NO . HEMATOLOGY/LYMPH: DO YOU TAKE ANY BLOOD THINNERS? (FOR EXAMPLE- COUMADIN, PLAVIX, AGGRENOX, PLATEL, PRADAXA, OR XARELTO) NO . WHEN WAS YOUR LAST DOSE? DATE: TIME: . NEUROLOGY: HAVE YOU FALLEN IN THE PAST 6 MONTHS? NO . ANY NEW EXTREMITY NUMBNESS OR WEAKNESS? NO . CARDIOLOGY: DO YOU HAVE A PACEMAKER OR DEFIBRILLATOR? NO . RESPIRATORY: HAVE YOU BEEN SICK IN THE PAST WEEK? NO . FEVER NO . FLU LIKE SYMPTOMS? NO . COUGH NO . INTEGUMENTARY: DO YOU HAVE ANY RASHES OR OPEN SORES? NO . ALLERGIC/IMMUNO: ARE YOU ALLERGIC TO SHELLFISH OR IV DYE? NO . ANY NEW ALLERGIES? NO . PSYCHIATRIC: DO YOU HAVE THOUGHTS OF HURTING YOURSELF OR SOMEONE ELSE? NO . ARE YOU ABUSED, NEGLECTED, OR IN AN UNSAFE ENVIRONMENT? NO . ENDOCRINOLOGY: ARE YOU DIABETIC? NO . OTHER: DO YOU NEED ANY PRESCRIPTIONS? YES . IF YES, PLEASE LIST: OUT OF PERCOCET SHE HAS HAD TO BE TAKING 3 A DAY FOR THE INCREASED PAIN . ANY NEW PROBLEMS WITH YOUR MEDICATIONS? NO . WHEN DID YOU LAST EAT? ____ . WHEN DID YOU LAST DRINK? ____ . WHAT DID YOU LAST DRINK? ____ . NAME OF PERSON DRIVING YOU HOME? ____ . DO YOU HAVE ANY OTHER QUESTIONS OR CONCERNS NO . VITAL SIGNS WT 158.0 LBS, HT 62 IN, BMI 28.90 INDEX, BP 138/69 MM HG, HR 86 /MIN, RR 16 /MIN, TEMP 98.1 F, OXYGEN SAT % 96%, NA INITIALS TL 1019, REVIEWED BY: NL. EXAMINATION GENERAL EXAMINATION: PSYCHALERT , ORIENTED X 3 , APPROPRIATE MOOD AND AFFECT . LUNGS:CLEAR TO AUSCULTATION BILATERALLY. NO COUGH WITH DEEP BREATH. MUSCULOSKELETAL:POINT TENDERNESS OVER CERVICAL SPINOUS PROCESSES AND TRAPEZIUS MUSCLES., TRIGGER POINTS AND ROPY FIBROUS BANDS ARE ELICITED WITH PALPATION OVER CERVICAL SPINOUS PROCESSES AND ACROSS THE TRAPEZIUS MUSCLES BILATERALLY RIGHT > LEFT. RESTRICTION OF ROM IS NOTED. TENDER OVER RIGHT ACROMIALCLAVICULAR JOINT. HUMANITIES TEACHER STRENTGTH EQUAL AND STRONG.. JOINTS:TENDER TO PALPATION OVER RIGHT ANTERIOR ASPECT OF THE ACROMIALCLAVICULAR JOINT. CAN ABDUCT RIGHT ARM TO APPROX 90 DEGREES TODAY. . ASSESSMENTS CERVICAL POST-LAMINECTOMY SYNDROME - M96.1 (PRIMARY) RIGHT ANTERIOR SHOULDER PAIN - M25.511 MYALGIA - M79.1 CHRONICALLY ON OPIATE THERAPY - Z79.899 TREATMENT CERVICAL POST-LAMINECTOMY SYNDROME REFILL METHOCARBAMOL TABLET, 500 MG, 1/2 -1 TAB, ORALLY, 1/2 TABLET IN MORNING AND MIDDAY, 1 TABLET AT BEDTIME, 30 DAY(S), 60, REFILLS 5 START MELOXICAM TABLET, 15 MG, 1 TABLET, ORALLY, ONCE A DAY, 30 DAY(S), 30, REFILLS 2 NOTES: UTOX AND COUNT MEDS TODAY. CLINICAL NOTES: ISTOP REGISTRY REVIEWED AND DEMNOSTRATES COMPLLIANCE. HAS OVER TAKEN OXYCODONE AND IS OUT OF MEDS EARLY - IS ALLOWED 50 TABS FOR THE MONTH. RECENT URINE TOXICOLOGY REVIEWED. NO UNAUTHORIZED MEDICATIONS. NO ILLICIT SUBSTANCES AND PRESCRIBED MEDICATIONS WERE PRESENT. DID RECEIVE CALL FROM [employer] THAT PT MAY BE DIVERTING HER MEDS. BECAUSE THEY ARE GONE EARLY AND BECAUSE SHE HAS ADMITTED TO TAKING MEDS THAT ARE NOT PRESCRIBED FOR HER ZI WILL BE STOPPING ALL OPIATES. WE WILL CONTINUE TO TREAT APPROPRIATE WITH INTERVENTIONS AND OTHER MEDS. RIGHT ANTERIOR SHOULDER PAIN TRIGGER POINT 3 + AKOSUA SALCEDO 12/20/2016 10:56:33 AM > RIGHT SHOULDER BLADE PROCEDURES PN WORKMANS' COMP OPINION IN YOUR OPINION, WAS THE INCIDENT THAT THE PATIENT DESCRIBED THE COMPETENT MEDICAL CAUSE OF THIS INJURY/ILLNESS? YES ARE THE PATIENT'S COMPLAINTS CONSISTENT WITH HIS/HER HISTORY OF THE INJURY/ILLNESS? YES IS THE PATIENT'S HISTORY OF THE INJURY/ILLNESS CONSISTENT WITH YOUR OBJECTIVE FINDING? YES WHAT IS THE PERCENTAGE OF TEMPORARY IMPAIRMENT? MODERATE TO MARKED = 66.7% IS THE PATIENT WORKING? YES DOCTOR ON SITE: JUDY DE LA PAZ MD PREVENTIVE MEDICINE DISCUSSED PREPROCEDURE CARE AND TPI /PT EXPRESSED UNDERSTANDING. PROCEDURE CODES FA211 ESTABILISHED PATIENT [facility] FACILITY CHARGE DISPOSITION & COMMUNICATION FOLLOW UP AFTER INJECTION (REASON: WC- CHECK AUTH FOR TPI/PHYSICAL THERAPY) ELECTRONICALLY SIGNED BY LISSETT MANZANARES ON 12/20/2016 AT 07:25 PM EDT DISCLAIMER : THIS IS A VISIT SUMMARY EXTRACTED FROM THE [employer] CHART. IT IS NOT A COPY OF THE [employer] PROGRESS NOTE. CALIXTO
== END ==
LOC: M PAIN 10:10
PROVIDERS: ATTEND Nurse Practitioner Family
DX: M96.1 Postlaminectomy syndrome, not elsewhere classified (principal); M25.511 Pain in right shoulder; M79.1 Myalgia; Z88.1 Allergy status to other antibiotic agents; Z88.0 Allergy status to penicillin; Z88.8 Allergy status to other drugs, medicaments and biological substances; Z79.1 Long term (current) use of non-steroidal anti-inflammatories (NSAID); Z79.891 Long term (current) use of opiate analgesic; Z79.899 Other long term (current) drug therapy

== ENCOUNTER → 2020-02-16 | Outpatient (CLI) | payer MEDICAID, OTHER ==
[~2020-02-16] MED LIST changes: -/METH500TA PO; +ADVA115A; +ALBU8.5H; +D3-5CAP; +METH1TAB40 PO; +PEGPOW; +VOLT1GEL15 TOP
== END ==
LOC: M LABSMTC 09:33
PROVIDERS: ATTEND Anesthesiology
DX: Z01.818 Encounter for other preprocedural examination (principal); Z11.59 Encounter for screening for other viral diseases; Z20.828 Contact with and (suspected) exposure to other viral communicable diseases
CPT/HCPCS: C9803; U0003

== ENCOUNTER 2020-02-21 07:39 | Day surgery (SDC) | payer MEDICAID ==
[~2020-02-21] VITALS: Ht 157.5 cm; Wt 67.1 kg
[~2020-02-21 07:39] MED LIST changes: +NS 1,000 ML IV ONE
[2020-02-21] MEDS ORDERED: propofoL 200 MG/20 ML VIAL As Ordered ONE (07:55)
[2020-02-21] MEDS ORDERED: LIDOCAINE 2% 100MG/5ML SDV (FOR ANES.) As Ordered ONE (07:55)
--- NOTE | 2020-02-21 09:06 | ROOR ---
Patient Name: Anton Burleson Procedure Date: 02/21/2020 8:35 AM Date of : 1970 Age: 49 Room: [facility] Gender: Female Note Status: Finalized Procedure: Colonoscopy Indications: Constipation Providers: Raf MIKE MD Referring MD: SELMA MAHONEY MD Requesting Provider: Medicines: Monitored Anesthesia Care Complications: No immediate complications. Procedure: Pre-Anesthesia Assessment: - The heart rate, respiratory rate, oxygen saturations, blood pressure, adequacy of pulmonary ventilation, and response to care were monitored throughout the procedure. The Colonoscope was introduced through the anus and advanced to the terminal ileum, with identification of the appendiceal orifice and IC valve. The colonoscopy was performed without difficulty. The patient tolerated the procedure well. The quality of the bowel preparation was good. Findings: Skin tags were found on perianal exam. Internal hemorrhoids were found during retroflexion. The hemorrhoids were medium-sized. The entire examined colon appeared normal on direct and retroflexion views. Impression: - Perianal skin tags found on perianal exam. - Moderate Internal hemorrhoids. - The entire examined colon is normal on direct and retroflexion views. - No specimens collected. Recommendation: - Continue present medications. Raf Mike MD Raf MIKE MD 02/21/2020 9:05:48 AM Electronically signed by Raf MIKE MD Number of Addenda: 0 Note Initiated On: 02/21/2020 8:35 AM Estimated Blood Loss: Estimated blood loss: none.
[2020-02-21 09:31] VITALS: BP 104/66
== END 2020-02-21 09:59 | disposition home or self-care (01) ==
LOC: M OPP 07:39
PROVIDERS: ATTEND Internal Medicine Gastroenterology
DX: K59.00 Constipation, unspecified (principal); K64.4 Residual hemorrhoidal skin tags; K64.8 Other hemorrhoids; J44.9 Chronic obstructive pulmonary disease, unspecified; Z79.899 Other long term (current) drug therapy; Z88.0 Allergy status to penicillin; Z88.1 Allergy status to other antibiotic agents; Z88.2 Allergy status to sulfonamides; Z85.118 Personal history of other malignant neoplasm of bronchus and lung; Z92.21 Personal history of antineoplastic chemotherapy